=== PATIENT | male | born 1980 | race Caucasian/White ===

== ENCOUNTER 2022-04-19 07:20 | Day surgery (SDC) | payer OTHER ==
[2022-04-19] VITALS (197 sets, daily range): BP systolic 98–167; BP diastolic 60–98
[~2022-04-19] VITALS: Ht 177.8 cm; Wt 82.0 kg
--- NOTE | 2022-04-19 07:32 | NUR ---
PT ARRIVED TO ROOM 291 ACCOMPAINED BY FRIEND. PT ORIENTED TO ROOM AND CALL LIGHT SYSTEM. DISCUSSED POC AND SAFETY PRECAUTIONS. CONSENTS OBTAINED. PT VERBALIZED UNDERSTANDING. PT CHANGED INTO GOWN, COMPRESSION STOCKINGS AND BRIEF. CALL LIGHT WITHIN REACH. WILL CONTINUE TO MONITOR.
[2022-04-19 08:09] LABS: HEMATOCRIT 38.1 % (39.0-50.0); IMMATURE GRANULOCYTES 0.2 % (0.0-5.0); MEAN CELL VOLUME 93.2 fL CALC (80.0-100.0); MEAN CORPUSCULAR HGB 31.8 pG CALC (26.0-32.0); MEAN CORPUSCULAR HGB CONC 34.1 g/dL CAL (32.0-36.0); NEUT# 2.06 thou/uL (1.82-7.42); RED BLOOD COUNT 4.09 mill/uL (4.70-6.10); RED CELL DISTRI WIDTH 12.2 % (11.5-15.5)
[2022-04-19 08:16] LABS: ALBUMIN 4.7 g/dL (3.2-5.0); ALKALINE PHOSPHATASE 58 u/l (38-126); ANION GAP 11 (6-22 (CALC)); BILIRUBIN, TOTAL 0.8 mg/dL (0.0-1.4); BUN 21 mg/dL (9-20); BUN/CREATININE RATIO 21 (12-20 (CALC)); CARBON DIOXIDE 30 mmol/l (22-30); CHLORIDE 103 mmol/l (95-108); GFR FOR AFR.AMER. > 60 ML/MIN (>=60 (CALC)); GFR OTHER RACES > 60 ML/MIN (>=60 (CALC)); SGOT/AST 77 u/l (17-59); SODIUM 139 mmol/l (137-146); TOTAL PROTEIN 7.9 g/dL (6.3-8.2)
--- NOTE | 2022-04-19 12:20 | NUR ---
Induction Note Patient to [facility] procedure room. Time out performed at 1220 . Patient placed on monitors, Mike hugger, bilateral wrist restraints applied for ET tube protection. Versed 5mg given IV push at 1221 Tourniquet applied to right arm Lidocaine 100mg given at 1222 IV push followed by Rocoronium 10mg at 1223 IV push and held for 90 seconds. Propofol bolus of 140 mg given at 1225 IV push. Succinylcholine 80mg given IV push at 1226. Smooth intubation with 7.5 ETT. Positive CO2. Positive Auscultation for air exchange. Patient placed on ventilator for spontaneous ventilation. Placed on Propofol IV drip at 1227. OG inserted. Positive air on auscultation. Positive gastric content. Stomach washed at this time.
--- NOTE | 2022-04-19 12:37 | NUR ---
OG close note Stomach washed at this time. Naltrexone 75 mg with Clonidine 0.2 mg via OG tube. OG will be clamped for 45 minutes.
[2022-04-19] MEDS ORDERED: NALTREXONE50 MG PO (13:08)
[2022-04-19] MEDS ORDERED: CLONIDINE0.1 MG PO (13:09)
[2022-04-19] MEDS ORDERED: KLONOPIN2 MG PO (13:10)
--- NOTE | 2022-04-19 13:22 | NUR ---
OG open note OG open at this time. Gastric content draining into drainage bag. OG to drain for 45 minutes. Propofol will be titrated down based on patient.
--- NOTE | 2022-04-19 14:07 | NUR ---
OG close note Stomach washed at this time. Naltrexone 50 mg with Clonidine 0.3 mg via OG tube. OG will be clamped for 45 minutes.
--- NOTE | 2022-04-19 18:17 | NUR ---
OG close note Stomach washed at this time. Naltrexone 25 mg with Clonidine 0.2 mg via OG tube. OG will be clamped for 45 minutes.
--- NOTE | 2022-04-19 18:40 | NUR ---
Extubation note Closing medications given Benadryl 50mg IV push, Decadron 10mg IV push,Magnesium 4 grams IV, Zofran 8mg IV push, Octreotide 100mcg SC. Stomach washed out prior to extubation. Suctioned gastric content. OG removed. Patient extubated. Propofol Discontinued. Wrist restraints removed. Mike hugger Removed. See [facility] Moderate sedate recovery record for further notes and assessment.
--- NOTE | 2022-04-19 19:36 | NUR ---
PATIENT RESTING IN BED TOWARDS HIS RIGHT SIDE. NO SIGNS OF DISTRESS NOTED. O2 AT 2L VIA NC. OXYGEN SAT AT 99%. BED REMAINS IN LOW POSITION. CALL MIMS IN REACH. BED ALARM ACTIVE.
--- NOTE | 2022-04-19 23:51 | NUR ---
PATIENT RESTING IN BED. ALERT. ABLE TO MAKE NEEDS KNOWN. NO COMPLAINTS VOICED AT THIS TIME. BED REMAINS IN LOW POSITION. CALL MIMS IN REACH. BED ALARM ACTIVE.
[2022-04-20 04:23] VITALS: BP 142/69
--- NOTE | 2022-04-20 04:23 | NUR ---
NEW IV SITE PUT IN #22 RT HAND DUE TOO PATIENT REMOVING BOTH HIS PREVIOUS IVS.
[2022-04-20 05:11] LABS: HEMOGLOBIN 12.9 g/dl (14.0-18.0); IMMATURE GRANULOCYTES 0.2 % (0.0-5.0); MEAN CELL VOLUME 90.7 fL CALC (80.0-100.0); MEAN CORPUSCULAR HGB 31.6 pG CALC (26.0-32.0); MEAN CORPUSCULAR HGB CONC 34.9 g/dL CAL (32.0-36.0); NEUT# 11.14 thou/uL (1.82-7.42); RED BLOOD COUNT 4.08 mill/uL (4.70-6.10); RED CELL DISTRI WIDTH 12.2 % (11.5-15.5)
[2022-04-20 05:30] LABS: ALBUMIN 4.7 g/dL (3.2-5.0); ALKALINE PHOSPHATASE 54 u/l (38-126); BILIRUBIN, TOTAL 1.1 mg/dL (0.0-1.4); BUN 15 mg/dL (9-20); BUN/CREATININE RATIO 15 (12-20 (CALC)); CHLORIDE 102 mmol/l (95-108); GFR FOR AFR.AMER. > 60 ML/MIN (>=60 (CALC)); GFR OTHER RACES > 60 ML/MIN (>=60 (CALC)); MAGNESIUM 1.9 mg/dL (1.6-2.3); SGOT/AST 53 u/l (17-59); SODIUM 136 mmol/l (137-146); TOTAL PROTEIN 7.5 g/dL (6.3-8.2)
[2022-04-20 05:42] LABS: ANION GAP 17 (6-22 (CALC)); CARBON DIOXIDE 21 mmol/l (22-30)
--- NOTE | 2022-04-20 06:45 | NUR ---
RECEIVED REPORT FROM DANNY PERKINS.
[2022-04-20 07:19] VITALS: BP 117/59
[2022-04-20 08:01] VITALS: BP 117/59
--- NOTE | 2022-04-20 08:24 | NUR ---
PT IN BED; A&O X2. PT AWAKE. EVEN AND UNLABORED RESPIRATIONS; CLEAR LUNG SOUNDS UPON AUSCULTATION. FLUSHED IV: #22 RIGHT HAND, HEALTHY AND PATENT. ACTIVE BOWEL SOUNDS X4 QUADRANTS. SKIN IS INTACT. PT ASSISTED TO BATHROM; STEADY GAIT NOTED. BED ALARM AND SAFETY PRECAUTIONS IN PLACE WITH CALL LIGHT IN REACH.
--- NOTE | 2022-04-20 11:57 | NUR ---
PT ASSISTED TO BATHROOM. PT WALING WITH STEADY GAIT. PT BACK IN BED. ORAL FLUIDS OFFERED AND LUNCH TRAY PROVIDED. SAFETY PRECAUTIONS IN PLACE WITH CALL LIGHT IN REACH.
--- NOTE | 2022-04-20 13:32 | NUR ---
PT EDUCATED ON D/C INSTRUCTIONS; PT SHOWED UNDERSTANDING. NO IV TO BE REMOVED; SINCE PT STATED HE PULLED IV OUT WHILE IN THE SHOWER. REGISTERED MAIL CLERK SAW IV ON TABLE, CATHETER INTACT. SAFETY PRECAUTIONS IN PLACE WITH CALL LIGHT IN REACH.
--- NOTE | 2022-04-20 14:01 | NUR ---
PT TAKEN TO FAMILY ROOM BY [facility] STAFF AT THIS TIME. Discharge instructions given. Patient verbalizes understanding of same. Discharged in stable condition via Wheelchair to Home with staff. All belongings sent with pt.
== END 2022-04-20 14:02 | disposition home or self-care (01) | DRG 897 ==
LOC: ANR 07:20 → MS2 07:20 → ANR 15:08
PROVIDERS: ATTEND Anesthesiology
DX: F11.20 Opioid dependence, uncomplicated (principal)
CPT/HCPCS: J2060; J2354; J3475